=== PATIENT | male | born 1990 | race Asian ===

== ENCOUNTER 2018-07-16 11:04 | Emergency (ER) | payer OTHER ==
[~2018-07-16] VITALS: Ht 175.3 cm; Wt 75.4 kg
[2018-07-16 11:10] VITALS: BP 134/84; PULSE 96; TEMP 98.7
[2018-07-16] MEDS ORDERED: PREDNISONE10 MG PO (11:37)
== END 2018-07-16 12:05 | disposition home or self-care (01) ==
LOC: COL.ER 11:04
DX: L23.7 Allergic contact dermatitis due to plants, except food (principal)
CPT/HCPCS: J7512

== ENCOUNTER 2018-07-17 01:45 | Emergency (ER) | payer OTHER ==
[~2018-07-17 01:45] MED LIST: PREDNISONE10 MG PO
[2018-07-17 01:50] VITALS: TEMP 97.1
[2018-07-17 02:21] LABS: ALANINE AMINOTRANSFERASE 18 U/L (21-72); ALBUMIN 4.7 gm/dL (3.5-5.0); ALCOHOL(ethanol),MEDICAL 238 mg/dL; ALKALINE PHOSPHATASE 72 U/L (50-136); ANION GAP 14 mmol/L (7-16); AST,SGOT 22 U/L (15-37); BILIRUBIN,TOTAL 0.3 mg/dL (0.0-1.0); BLOOD UREA NITROGEN 10 mg/dL (9-20); CALCIUM 9.3 mg/dL (8.4-10.2); CARBON DIOXIDE 25 mmol/L (22-30); CHLORIDE 106 mmol/L (98-107); CREATININE, serum 0.85 (0.66-1.25); GLUCOSE 117 mg/dL (74-106); POTASSIUM 4.4 mmol/L (3.4-5.0); SODIUM 145 mmol/L (137-145); TOTAL PROTEIN 8.1 gm/dL (6.4-8.2)
[2018-07-17 02:22] LABS: ACETAMINOPHEN < 10 ug/mL (10-30); SALICYLATE < 1.0 mg/dL
[2018-07-17 02:32] LABS: BASO % 0.1 % (0.0-2.0); EOS # 0.1 (0.0-0.7); EOS % 0.7 % (0-4.0); GRAN # 5.9 (1.4-6.5); GRAN % 72.3 % (42.2-75.2); HEMATOCRIT 45.8 % (42.0-52.0); HEMOGLOBIN 15.6 g/dl (13.5-18.0); LYMPH # 1.6 (1.2-3.4); MEAN CELL VOLUME 92 fl (80.0-100.0); MEAN CORPUSCULAR HEMOGLOBIN 31 pg (27.0-31.0); MEAN CORPUSCULAR HGB CONC 34 g/dl (33.0-37.0); MEAN PLATELET VOLUME 9.7 fl (7.4-10.4); MONO # 0.5 (0.1-0.6); MONO % 6.5 % (1.7-9.3); PLATELET COUNT 250 K/mm3 (130-400); RED BLOOD COUNT 4.98 M/mm3 (4.20-5.60); REDCELL DISTRIBUTION WIDTH-CV 12.1 % (11.5-14.5)
[2018-07-17 08:28] VITALS: BP 99/66; PULSE 106
== END 2018-07-17 08:28 | disposition home or self-care (01) ==
LOC: COL.ER 01:45
PROVIDERS: Emergency Medicine
DX: L23.7 Allergic contact dermatitis due to plants, except food (principal); F10.129 Alcohol abuse with intoxication, unspecified; Y90.7 Blood alcohol level of 200-239 mg/100 ml
CPT/HCPCS: J7030